=== PATIENT | female | born 1960 | race African-American/Black ===

== ENCOUNTER 2017-02-24 19:14 | Inpatient (IN) | payer MEDICARE, MEDICAID ==
[~2017-02-24] VITALS: Ht 167.6 cm; Wt 61.2 kg
[2017-02-24] MEDS ORDERED: ACETAMINOPHEN 325MG TABLET PO STA (19:22)
[2017-02-24 20:26] LABS: CHLORIDE 104 mEq/L (98-107); HEMATOCRIT. 41.9 % (36.0-48.0); HEMOGLOBIN. 13.9 g/dL (12.0-16.0); MEAN CORPUSCULAR HEMOGLOBIN 27.1 pg (28.0-32.0); MEAN PLATELET VOLUME 12.1 fl (7.4-10.4); PLATELET 204 x1000/uL (130-400); RED BLOOD CELL COUNT 5.11 mill/uL (4.2-5.4); RED CELL DISTRIBUTION WIDTH 13.3 % (11.6-14.6)
[2017-02-24 20:27] LABS: INR 1.1; PROTHROMBIN TIME 11.7 sec (9.4-11.6)
[2017-02-24 20:31] LABS: CARBON DIOXIDE 25 mEq/L (21-32)
[2017-02-24 20:36] LABS: ETHANOL BLOOD < 10 mg/dL
[2017-02-24 21:24] LABS: PLATELET ESTIMATE NORMAL
[2017-02-24 23:21] LABS: CLARITY URINE CLOUDY (CLEAR); COLOR URINE DARK YELLOW (YELLOW); GLUCOSE URINE NEGATIVE (NEGATIVE); KETONES URINE NEGATIVE (NEGATIVE); LEUKOCYTE ESTERASE URINE NEGATIVE (NEGATIVE); NITRITE URINE NEGATIVE (NEGATIVE); OCCULT BLOOD URINE 2+ (NEGATIVE); PROTEIN URINE 1+ (NEGATIVE); SPECIFIC GRAVITY URINE 1.028 (1.005-1.030)
[2017-02-24] MEDS ORDERED: CEFTRIAXONE 1 G PREMIX 50 ML IV ONE (23:30)
[2017-02-25] MEDS ORDERED: HYDRALAZINE 20MG/ML VIAL IV PRN (00:30)
[2017-02-25] MEDS ORDERED: IPRATROPIUM/ALBUTEROL 0.5-3(2.5)MG/3ML NEB INH PRN (00:30)
[2017-02-25] MEDS ORDERED: CEFTRIAXONE 1 G PREMIX 50 ML IV SCH (00:30)
[2017-02-25] MEDS ORDERED: ONDANSETRON HCL 4MG/2ML VIAL IV PRN (00:30)
[2017-02-25] MEDS ORDERED: LORAZEPAM 2MG/ML CPJ IV PRN (00:30)
[2017-02-25] MEDS ORDERED: ACETAMINOPHEN 650MG SUPP PR PRN (00:30)
[2017-02-25 00:54] LABS: BG BASE EXCESS 2.4 mmol/L (-2.0-2.0); BG CARBOXYHEMOGLOBIN 0.9 % (0.5-1.5); BG DEOXYHEMOGLOBIN 2.7 % (0.0-5.0); BG FRACTION INSPIRED OXYGEN 21; BG HCO3 ACT 25.7 mmol/L (22.0-26.0); BG METHEMOGLOBIN 0.3 % (0.0-1.5); BG OXYGEN SATURATION 97.3 % (92.0-98.5); BG OXYHEMOGLOBIN 96.1 % (94.0-97.0); BG PCO2 36.1 mmHg (35.0-45.0); BG PH 7.471 (7.350-7.450); BG PO2 86.9 mmHg (75.0-100.0); BG SAMPLE SITE RIGHT RADIAL; BG TOTAL HEMOGLOBIN 14.7 g/dL (12.0-18.0); BG VENT MODE ROOM AIR
[2017-02-25 03:02] VITALS: BP 130/81
[2017-02-25 06:43] LABS: AMMONIA 46 uMol/L (<32)
[2017-02-25] MEDS ORDERED: ROCEPHIN (CEFTRIAXONE) XX SCH (06:45)
[2017-02-25 07:23] LABS: CREATINE KINASE 484 IU/L (26-192); CREATINE KINASE MB FRACTION 8.6 ng/mL (0.5-3.6); TROPONIN I < 0.02 ng/mL (0.00-0.04)
[2017-02-25 07:34] LABS: *AMPHETAMINES SCREEN URINE NEGATIVE (NEGATIVE); *BARBITURATES SCREEN URINE NEGATIVE (NEGATIVE); *BENZODIAZEPINES SCREEN URINE NEGATIVE (NEGATIVE); *COCAINE SCREEN URINE NEGATIVE (NEGATIVE); CANNABINOID URINE SCREEN PRESUMTIVE POSITIVE (NEGATIVE); METHADONE URINE SCREEN NEGATIVE (NEGATIVE); OPIATES URINE SCREEN NEGATIVE (NEGATIVE); PHENCYCLIDINE URINE SCREEN NEGATIVE (NEGATIVE)
[2017-02-25 07:53] VITALS: BP 127/85
[2017-02-25 12:38] VITALS: BP 134/84
[2017-02-25 15:52] LABS: CREATINE KINASE 452 IU/L (26-192); CREATINE KINASE MB FRACTION 8.4 ng/mL (0.5-3.6); TROPONIN I < 0.02 ng/mL (0.00-0.04)
[2017-02-25 16:24] VITALS: BP 134/79
[2017-02-25 20:24] VITALS: BP 139/114
[2017-02-25] MEDS: CEFTRIAXONE 1 G PREMIX 50 ML IV SCH (21:11)
[2017-02-26 00:04] VITALS: BP 115/71
[2017-02-26 06:01] VITALS: BP 114/61
[2017-02-26 06:27] LABS: BASOPHILS % 0.3 % (0.0-2.0); EOSINOPHILS % 0.8 % (0.0-5.0); HEMATOCRIT. 42.7 % (36.0-48.0); MEAN CORPUSCULAR HEMOGLOBIN 26.8 pg (28.0-32.0); MEAN CORPUSCULAR VOLUME 81.6 fL (81.0-99.0); MEAN PLATELET VOLUME 12.7 fl (7.4-10.4); MONOCYTES % 9.4 % (2.0-8.0); NEUTROPHILS % 79.5 % (40.0-76.0); PLATELET 205 x1000/uL (130-400); RED BLOOD CELL COUNT 5.23 mill/uL (4.2-5.4); RED CELL DISTRIBUTION WIDTH 13.5 % (11.6-14.6)
[2017-02-26 07:01] LABS: CARBON DIOXIDE 26 mEq/L (21-32); CHLORIDE 102 mEq/L (98-107); HDL CHOLESTEROL 49 mg/dL (40-59); LDL CHOLESTEROL 70 mg/dL (5-100)
[2017-02-26 08:00] VITALS: BP 108/69
[2017-02-26 08:36] LABS: BG BASE EXCESS 2.5 mmol/L (-2.0-2.0); BG CARBOXYHEMOGLOBIN 1.1 % (0.5-1.5); BG DEOXYHEMOGLOBIN 2.3 % (0.0-5.0); BG FRACTION INSPIRED OXYGEN 21; BG METHEMOGLOBIN 0.4 % (0.0-1.5); BG OXYGEN SATURATION 97.7 % (92.0-98.5); BG OXYHEMOGLOBIN 96.2 % (94.0-97.0); BG PCO2 36.4 mmHg (35.0-45.0); BG PH 7.471 (7.350-7.450); BG PO2 93.1 mmHg (75.0-100.0); BG SAMPLE SITE RIGHT RADIAL; BG TOTAL HEMOGLOBIN 14.1 g/dL (12.0-18.0); BG VENT MODE ROOM AIR
[2017-02-26 10:12] LABS: T4 FREE 1.36 ng/dL (0.76-1.46)
[2017-02-26 10:31] LABS: FOLIC ACID (FOLATE) SERUM 17.9 ng/mL (>5.38)
[2017-02-26 12:00] VITALS: BP 119/70
[2017-02-26] MEDS ORDERED: GADOBENATE DIMEGLUMINE 529 MG/ML 10ML IV ONE (13:17)
[2017-02-26 16:00] VITALS: BP 126/86
[2017-02-26 20:00] VITALS: BP 113/77
[2017-02-26] MEDS: CEFTRIAXONE 1 G PREMIX 50 ML IV SCH (20:51)
[2017-02-27] VITALS: BP 104/57
[2017-02-27 04:00] VITALS: BP 119/73
[2017-02-27 08:23] VITALS: BP 108/63
[2017-02-27 11:06] LABS: HEMATOCRIT 40.3 % (36.0-48.0); HEMOGLOBIN 13.2 g/dL (12.0-16.0); MEAN CORPUSCULAR HEMOGLOBIN 26.7 pg (28.0-32.0); MEAN CORPUSCULAR VOLUME 81.5 fL (81.0-99.0); PLATELET 201 x1000/uL (130-400); RED BLOOD CELL COUNT 4.95 mill/uL (4.2-5.4); RED CELL DISTRIBUTION WIDTH 13.4 % (11.6-14.6)
[2017-02-27 11:21] LABS: CHLORIDE 104 mEq/L (98-107)
[2017-02-27 11:29] LABS: CARBON DIOXIDE 29 mEq/L (21-32)
[2017-02-27 13:06] VITALS: BP 110/77
[2017-02-27 17:42] VITALS: BP 130/70
[2017-02-27] MEDS ORDERED: AMLO10TA80 PO (19:29)
[2017-02-27] MEDS ORDERED: INTE30PE3 IM (19:29)
[2017-02-27] MEDS ORDERED: OXYB5TAB11 PO (19:29)
[2017-02-27 20:00] VITALS: BP 109/69
[2017-02-27] MEDS: CEFTRIAXONE 1 G PREMIX 50 ML IV SCH (21:32)
[2017-02-28] VITALS: BP 107/58
[2017-02-28 04:00] VITALS: BP 110/59
[2017-02-28 08:18] VITALS: BP 115/61
[2017-02-28] MEDS: AMLODIPINE 10MG TABLET PO SCH (08:54)
[2017-02-28] MEDS: OXYBUTYNIN CHLORIDE 5MG TABLET PO SCH ×3 (08:54→16:51)
[2017-02-28 12:54] VITALS: BP 132/70
[2017-02-28 17:01] VITALS: BP 132/81
[2017-02-28 20:00] VITALS: BP 136/76
[2017-02-28] MEDS: CEFTRIAXONE 1 G PREMIX 50 ML IV SCH (21:37)
[2017-03-01] VITALS: BP 130/70
[2017-03-01 04:00] VITALS: BP 127/80
[2017-03-01 07:59] VITALS: BP 131/71
[2017-03-01] MEDS: AMLODIPINE 10MG TABLET PO SCH (09:08)
[2017-03-01] MEDS: OXYBUTYNIN CHLORIDE 5MG TABLET PO SCH ×3 (09:08→16:19)
[2017-03-01 12:00] VITALS: BP 116/63
[2017-03-01 16:00] VITALS: BP 114/64
[2017-03-01 20:00] VITALS: BP 118/72
[2017-03-01] MEDS: CEFTRIAXONE 1 G PREMIX 50 ML IV SCH (21:23)
[2017-03-02] VITALS: BP 120/75
[2017-03-02 04:00] VITALS: BP 114/62
[2017-03-02 08:00] VITALS: BP 122/73
[2017-03-02] MEDS: AMLODIPINE 10MG TABLET PO SCH (08:15)
[2017-03-02] MEDS: OXYBUTYNIN CHLORIDE 5MG TABLET PO SCH ×3 (08:15→17:10)
[2017-03-02 12:00] VITALS: BP 110/61
[2017-03-02 16:00] VITALS: BP 129/69
[2017-03-02 20:00] VITALS: BP 124/82
[2017-03-03] VITALS (7 sets, daily range): BP systolic 106–141; BP diastolic 64–74
[2017-03-03] MEDS: OXYBUTYNIN CHLORIDE 5MG TABLET PO SCH ×3 (08:14→16:56)
[2017-03-03] MEDS: AMLODIPINE 10MG TABLET PO SCH (08:15)
== END 2017-03-03 21:04 | DRG 58 ==
LOC: ER 20:48 → 6WST 23:51 → EDBEDREQ 02-25 00:08 → EDBEDREQSVC 02-25 00:08
PROVIDERS: ADMIT Internal Medicine; ATTEND Internal Medicine
DX: G35 Multiple sclerosis (principal); G93.40 Encephalopathy, unspecified; F12.90 Cannabis use, unspecified, uncomplicated; I10 Essential (primary) hypertension; R26.9 Unspecified abnormalities of gait and mobility
CPT/HCPCS: 36415; 36600; 70450; 70551; 70552; 71010; 72156; 80053; 80061; 80305; 81001; 82140; 82375; 82550; 82553; 82607; 82746; 82805; 83036; 83605; 83690; 84439; 84443; 84481; 84484; 85025; 85027; 85610; 87040; 87086; 87493; 93005; 93970; 97112; 97116; 97163; 97166; 97530; 97535; 99285; A6261; A9577; G0482; J0696; J7050; A4315